=== PATIENT | female | born 1990 | race Caucasian/White ===

== ENCOUNTER 2016-06-06 07:58 | Day surgery (SDC) | payer BC, OTHER ==
[2016-06-06 08:28] VITALS: BP 107/67; PULSE 90; RESP 17; TEMP 97.1
== END 2016-06-06 09:10 | disposition home or self-care (01) ==
LOC: FBPOP 07:58
PROVIDERS: ATTEND Obstetrics & Gynecology
DX: O47.03 False labor before 37 completed weeks of gestation, third trimester (principal)
CPT/HCPCS: 59025; 99213

== ENCOUNTER 2016-06-15 05:55 | Inpatient (IN) | payer BC, OTHER ==
[2016-06-15] MEDS ORDERED: METHYLERGONOVINE 0.2 MG/ML 1 ML AMP IM PRN (06:02)
[2016-06-15] MEDS ORDERED: OXYTOCIN 10 UNIT/ML 1 ML VIAL IM PRN (06:02)
[2016-06-15] MEDS ORDERED: OXYTOCIN 30 UNITS/500 ML NS 30 UNIT in SALINE 1 500ML.BAG IV SCH ×2 (06:02→14:00)
[2016-06-15] MEDS ORDERED: LIDOCAINE 1% (PF) 10 MG/ML (30 ML SDV) SQ PRN (06:02)
[2016-06-15] MEDS ORDERED: CARBOPROST TROMETHAMINE 250 MCG/ML 1 ML AMP IM PRN (06:02)
[2016-06-15] MEDS ORDERED: TERBUTALINE 1 MG/ML VIAL SQ PRN (06:02)
[2016-06-15 06:19] VITALS: BMI 30.2
[2016-06-15] MEDS: LACTATED RINGERS 1,000 ML IV SCH ×3 (06:20→12:48)
[2016-06-15 06:29] LABS: Basophils % (A) 0 %; CH 24.7; CHCM 32.4; Eosinophils # (A) 0.1 k/uL (0-0.7); Eosinophils % (A) 1 %; HCT 34.2 % (34.0-46.0); HGB 10.8 gm/dL (11.4-16.0); Hypochromasia Slight; Luc # (Auto) 0.15; Luc % (Auto) 1; Lymphocytes # (A) 1.8 k/uL (1.0-4.8); Lymphocytes % (A) 17 %; MCH 24.3 pg (25.0-35.0); MCHC 31.6 g/dL (31.0-37.0); MCV 76.8 fL (80.0-100.0); Microcytosis Slight; Monocytes # (A) 0.9 k/uL (0-1.0); Monocytes % (A) 8 %; Neutrophils % (A) 73 %; RBC 4.46 m/uL (3.80-5.40); WBC 10.9 k/uL (3.8-10.6); WBC (Perox) 11.28
--- NOTE | 2016-06-15 07:11 | P.HPOB ---
History of Present Illness H&P Date: 06/15/16 Chief Complaint: Induction of labor 26-year-old presents for induction of labor. Her cervix is 2 cm dilated, 70% effaced, and -2 station. She is riccardo irregularly. heart tones 130-135 with moderate variability and reactive. Review of Systems All systems: negative Constitutional: Denies chills, Denies fever Eyes: denies blurred vision, denies pain Ears, nose, mouth and throat: Denies headache, Denies sore throat Cardiovascular: Denies chest pain, Denies shortness of breath Respiratory: Denies cough Gastrointestinal: Denies abdominal pain, Denies diarrhea, Denies nausea, Denies vomiting Genitourinary: Denies dysuria, Denies hematuria Musculoskeletal: Denies myalgias Integumentary: Denies pruritus, Denies rash Neurological: Denies numbness, Denies weakness Psychiatric: Denies anxiety, Denies depression Endocrine: Denies fatigue, Denies weight change Past Medical History Past Medical History: No Reported History Additional Past Medical History / Comment(s): Obstetric history: She had 2 previous vaginal deliveries, and then Amoxil termination. This is her fourth . She started care with pa at 14 weeks gestation. Her blood type is A+, antibodies are positive but too weak to titer, HIV nonreactive, hepatitis B negative, rubella immune, RPR nonreactive. Normal 1 hour glucose tolerance test. GBS negative. History of Any Multi-Drug Resistant Organisms: None Reported Past Surgical History: No Surgical Hx Reported Past Psychological History: No Psychological Hx Reported Smoking Status: Never smoker Past Alcohol Use History: Occasional Past Drug Use History: None Reported - Past Family History Father Family Medical History: No Reported History Medications and Allergies Home Medications Medication Instructions Recorded Confirmed Type No Known Home Medications [No 06/15/16 06/15/16 History Known Home Medications] Allergies Allergy/AdvReac Type Severity Reaction Status Date / Time No Known Allergies Allergy Verified 06/15/16 06:02 Exam Osteopathic Statement: *. No significant issues noted on an osteopathic structural exam other than those noted in the History and Physical/Consult. - Vital Signs Vital signs: Vital Signs Temp Pulse Resp BP 06/15/16 06:12 97.0 F L 91 16 116/74 Intake and Output 06/14/16 06/15/16 06/15/16 22:59 06:59 14:59 Other: # Voids 1 Weight 72.575 kg Heart: Regular rate and rhythm Lungs: Clear to auscultation bilaterally Abdomen: Soft, nontender Extremities: Negative Homans sign Results Result Diagrams: 06/15/16 06:15 Abnormal Lab Results - Last 24 Hours (Table) 06/15/16 Range/Units 06:15 WBC 10.9 H (3.8-10.6) k/uL Hgb 10.8 L (11.4-16.0) gm/dL MCV 76.8 L (80.0-100.0) fL MCH 24.3 L (25.0-35.0) pg Neutrophils # 8.0 H (1.3-7.7) k/uL Assessment and Plan (1) Normal labor Status: Acute Plan: 1. Admit to family place 2. Induction of labor with Pitocin and amniotomy. 3. Anticipate normal vaginal delivery
[2016-06-15] MEDS ORDERED: BUPIVACAINE (PF) 0.25% 30 ML VIAL ONE (08:25)
[2016-06-15] MEDS ORDERED: fentaNYL (PF) 50 MCG/ML 5 ML AMP ONE (08:25)
[2016-06-15] MEDS ORDERED: SODIUM CHLORIDE 0.9% 100 ML BAG ONE (08:25)
[2016-06-15] MEDS ORDERED: BUPIVACAINE (PF) 0.25% 25 ML, fentaNYL (PF) 200 MCG in SODIUM CHLORIDE 0.9% 71 ML EPIDURAL ONE (09:07)
[2016-06-15] MEDS ORDERED: ZOLPIDEM 5 MG TAB PO PRN (13:58)
[2016-06-15] MEDS ORDERED: HYDROCORTISONE 2.5% RECTAL CREAM 30 GM TUBE RECTAL PRN (13:58)
[2016-06-15] MEDS ORDERED: SIMETHICONE 80 MG CHEWABLE PO PRN (13:58)
[2016-06-15] MEDS ORDERED: BENZOCAINE/MENTHOL SPRAY 1 GM/SPRAY AEROSOL TOPICAL PRN (13:58)
[2016-06-15] MEDS ORDERED: diphenhydrAMINE 50 MG CAP PO PRN (13:58)
[2016-06-15] MEDS ORDERED: diphenhydrAMINE 50 MG/ML 1 ML VIAL IVP PRN ×2 (13:58)
[2016-06-15] MEDS ORDERED: diphenhydrAMINE 25 MG CAP PO PRN (13:58)
[2016-06-15] MEDS ORDERED: WITCH HAZEL 1 EACH MED..PAD TOPICAL PRN (13:58)
[2016-06-15] MEDS ORDERED: Acetaminophen-Codeine 300-30mg TAB PO PRN ×2 (13:58)
[2016-06-15] MEDS ORDERED: LANOLIN CREAM 5 GM TUBE TOPICAL PRN (13:58)
[2016-06-15] MEDS: IBUPROFEN 600 MG TAB PO PRN ×2 (14:22→23:11)
[2016-06-15] MEDS: ACETAMINOPHEN TAB 325 MG TAB PO PRN (19:37)
[2016-06-15] MEDS: SENNOSIDES-DOCUSATE SODIUM 1 EACH TAB PO SCH (20:20)
[2016-06-16] MEDS: SENNOSIDES-DOCUSATE SODIUM 1 EACH TAB PO SCH ×2 (02:26→09:56)
[2016-06-16] MEDS: ACETAMINOPHEN TAB 325 MG TAB PO PRN (02:26)
[2016-06-16] MEDS: IBUPROFEN 600 MG TAB PO PRN ×2 (08:03→14:18)
--- NOTE | 2016-06-16 08:13 | P.PROBDLV ---
Vaginal Delivery Note - . Vaginal Delivery Note: 26-year-old presents at 39 weeks and 2 days for induction of labor. Her cervix was 2 cm dilated, 70% effaced, -2 station. She is riccardo irregularly. heart tones 130-135 with moderate variability and reactive. Amniotomy was performed at 6:56 AM clear fluid noted. Pitocin was also started. When she was 4 cm she did get an epidural and was comfortable. Her cervix was completely dilated at 1329. She pushed, and delivered a viable male over midline episiotomy under epidural anesthesia at 1335. Head delivered OA, anterior shoulder delivered gentle downward traction followed by posterior shoulder and rest of body. Nose and mouth bulb suctioned, cord clamped and cut, infant placed on mother's abdomen. Apgars 8, 9, weight 7 lbs. 2 oz. Placenta delivered spontaneously, intact with three-vessel cord at 1337. Vagina, cervix, and perineum were inspected. Second-degree midline episiotomy was repaired with 3-0 Vicryl. There was a possible cystic lesion on the right labia as well which was anesthetized and then a small incision was made with a #10 blade. No fluid came out but there was some tissue recovered. This was possiblely a lipoma but was sent to pathology for analysis. Estimated blood loss 150 mL, mother and baby in stable condition.
--- NOTE | 2016-06-16 08:17 | P.DS ---
Providers Date of admission: 06/15/16 05:55 Expected date of discharge: 06/16/16 Attending physician: Alexsandra Jha Primary care physician: Stated None - Discharge Diagnosis(es) (1) Normal labor Current Visit: Yes Status: Resolved (2) Normal vaginal delivery Current Visit: Yes Status: Acute Hospital Course: Patient presented for induction of labor at 39 weeks and 2 days. She underwent a normal vaginal delivery. Her course was uncomplicated. She'll be discharged home on day #1 in stable condition to follow-up with me in 6 weeks. She denies nausea, vomiting, chest pain, sugars of breath or calf pain. She is ambulating voiding without difficulty and her lochia is decreasing. Plan - Discharge Summary New Discharge Prescriptions: Acetaminophen-Codeine 300-30mg [Tylenol w/codeine #3] 2 each PO Q4HR PRN #30 tab PRN Reason: Moderate To Severe Pain Ibuprofen [Motrin] 600 mg PO Q6HR PRN #30 tab PRN Reason: Mild Pain Or Fever >= 100.5 Discharge Medication List Acetaminophen-Codeine 300-30mg [Tylenol w/codeine #3] 2 each PO Q4HR PRN #30 tab 06/16/16 [Rx] Ibuprofen [Motrin] 600 mg PO Q6HR PRN #30 tab 06/16/16 [Rx] Follow up Appointment(s)/Referral(s): Alexsandra Jha DO [Doctor of Osteopathic Medicine] - 6 Weeks Discharge Disposition: HOME SELF-CARE
[2016-06-16 08:25] LABS: Basophils % (A) 0 %; CH 24.2; CHCM 31.2; Eosinophils # (A) 0.1 k/uL (0-0.7); Eosinophils % (A) 1 %; HDW 3.28; HGB 9.4 gm/dL (11.4-16.0); Hypochromasia Moderate; Luc # (Auto) 0.18; Luc % (Auto) 2; Lymphocytes # (A) 1.8 k/uL (1.0-4.8); Lymphocytes % (A) 15 %; MCH 24.3 pg (25.0-35.0); MCHC 31.2 g/dL (31.0-37.0); MCV 77.9 fL (80.0-100.0); Mean Platelet Volume 7.6; Monocytes # (A) 0.4 k/uL (0-1.0); Monocytes % (A) 3 %; Neutrophils # (A) 9.5 k/uL (1.3-7.7); Neutrophils % (A) 79 %; RBC 3.86 m/uL (3.80-5.40); RDW 14.8 % (11.5-15.5); WBC 12.1 k/uL (3.8-10.6); WBC (Perox) 12.31
[2016-06-16 09:44] VITALS: BP 118/74; PULSE 74; RESP 20; TEMP 97.6
== END 2016-06-16 15:00 | disposition home or self-care (01) | DRG 775 ==
LOC: 4FBP 05:55
PROVIDERS: ADMIT Obstetrics & Gynecology; ATTEND Obstetrics & Gynecology
PROC: 10E0XZZ Delivery of Products of Conception, External Approach (ICD-10-PCS; principal; 2016-06-15)
PROC: 10907ZC Drainage of Amniotic Fluid, Therapeutic from Products of Conception, Via Natural or Artificial Opening (ICD-10-PCS; 2016-06-15)
PROC: 3E033VJ Introduction of Other Hormone into Peripheral Vein, Percutaneous Approach (ICD-10-PCS; 2016-06-15)
PROC: 0W8NXZZ Division of Female Perineum, External Approach (ICD-10-PCS; 2016-06-15)
PROC: 0HBAXZX Excision of Inguinal Skin, External Approach, Diagnostic (ICD-10-PCS; 2016-06-15)
DX: O99.72 Diseases of the skin and subcutaneous tissue complicating childbirth (principal); D17.79 Benign lipomatous neoplasm of other sites; Z37.0 Single live birth; Z3A.39 39 weeks gestation of pregnancy
CPT/HCPCS: 85025; 88304; 88307

== ENCOUNTER 2019-07-24 20:34 | Emergency (ER) | payer BC, OTHER ==
[2019-07-24] MEDS ORDERED: SODIUM CHLORIDE 0.9% 1,000 ML IV STA (21:02)
[2019-07-24] MEDS ORDERED: ONDANSETRON 4 MG/2 ML VIAL IVP STA (21:02)
[2019-07-24] MEDS ORDERED: MORPHINE SULFATE 4 MG/ML SYRINGE IV STA (21:02)
[2019-07-24 21:15] LABS: Appearance,Urine Clear (Clear); Bilirubin,Urine Negative (Negative); Blood,Urine Negative (Negative); Color,Urine Yellow; Glucose,Urine (UA) Negative (Negative); HCT 30.1 % (34.0-46.0); HGB 8.9 gm/dL (11.4-16.0); Hypochromasia Marked; Ketones,Urine Negative (Negative); Leukocyte Esterase,Urine Negative (Negative); MCH 19.2 pg (25.0-35.0); MCHC 29.6 g/dL (31.0-37.0); MCV 64.7 fL (80.0-100.0); Mean Platelet Volume 7.5; Microcytosis Marked; Nitrite,Urine Negative (Negative); Platelet Count 310 k/uL (150-450); Poikilocytosis Slight; Protein,Urine Trace (Negative); RBC 4.66 m/uL (3.80-5.40); RDW 15.9 % (11.5-15.5); Specific Gravity,Urine 1.025 (1.001-1.035); Urobilinogen,Urine <2.0 mg/dL (<2.0)
[2019-07-24 21:24] LABS: ALT 8 U/L (4-34); AST 19 U/L (14-36); African American GFR (CKD) >90 (>60 ml/min/1.73 sqM); Albumin 4.2 g/dL (3.5-5.0); Alkaline Phosphatase 78 U/L (38-126); Anion Gap 9 mmol/L; Blood Urea Nitrogen 11 mg/dL (7-17); Calcium 9.4 mg/dL (8.4-10.2); Carbon Dioxide 24 mmol/L (22-30); Chloride 105 mmol/L (98-107); Glucose 93 mg/dL (74-99); Non-African American GFR(CKD) >90 (>60 ml/min/1.73 sqM); Potassium 3.5 mmol/L (3.5-5.1); Sodium 138 mmol/L (137-145); Total Bilirubin <0.1 mg/dL (0.2-1.3); Total Protein 7.3 g/dL (6.3-8.2)
[2019-07-24 21:47] VITALS: RESP 16
--- NOTE | 2019-07-24 21:53 | XR ---
EXAMINATION TYPE: XR KUB DATE OF EXAM: 07/24/2019 COMPARISON: NONE HISTORY: Abdominal pain TECHNIQUE: 2 views upright FINDINGS: Bowel gas pattern is normal. There is no sign of intestinal obstruction or pneumoperitoneum . Fecal pattern is normal. There is phleboliths in the pelvis on the right side. There are no calcifi cations over the kidneys. IMPRESSION: Nonacute abdomen.
[2019-07-24 21:55] LABS: Basophils # (M) 0.05 k/uL (0-0.2); Eosinophils # (M) 0.05 k/uL (0-0.7); Neutrophils % (M) 58 %; Nucleated Red Blood Cells 0 /100 WBC (0-0); Poikilocytosis (M) Present; Polychromasia Present; Total Cells Counted 100
--- NOTE | 2019-07-24 23:00 | US ---
EXAMINATION TYPE: US renals and bladder DATE OF EXAM: 07/24/2019 COMPARISON: NONE CLINICAL HISTORY: pain hx kidney stones . Pain x 3 hours. Hx kidney stones. EXAM MEASUREMENTS: Right Kidney: 11.4 x 5.5 x 4.9 cm Left Kidney: 10.8 x 5.0 x 5.6 cm Right Kidney: Anechoic dilated renal pelvis seen, appearance of hydronephrosis. Left Kidney: No hydronephrosis or masses seen Bladder: Appears anechoic. Bladder wall measures thickened at 0.48 cm. Bilateral Jets seen: Yes IMPRESSION: There is moderate right-sided hydronephrosis. There is however bilateral ureteral jets and I do not s uspect a high-grade obstruction. There is no significant renal atrophy.
--- NOTE | 2019-07-24 23:02 | US ---
EXAMINATION TYPE: US abdomen APPY DATE OF EXAM: 07/24/2019 COMPARISON: NONE CLINICAL HISTORY: RLQ pain . RLQ pain x 3 hours. Tubular structure with no peristalsis is seen in the RLQ anterior to iliac vessels. This structure measures 11 mm (AP Appendix Diameter: normal < 6mm) Measured outer wall to outer wall. Is the appendix seen in its entirety from the proximal cecum to distal end?: Tubular structure is se en in the RLQ that appears to connect to intestine. Is the appendix compressible: Area measured appears to compress only minimally. IMPRESSION: Tubular structure seen consistent with the appendix. The diameter is 10 mm which is abno rmal. Appendicitis is possible. No free fluid.
--- NOTE | 2019-07-24 23:43 | CT ---
EXAMINATION TYPE: CT abdomen pelvis w con DATE OF EXAM: 07/24/2019 COMPARISON: None HISTORY: RLQ pain CT DLP: 649.7 mGycm Automated exposure control for dose reduction was used. CONTRAST: Performed with IV Contrast, patient injected with 100 mL of Isovue 300. Multiple axial sections were obtained from the diaphragm to the floor the pelvis with intravenous con trast. Lung bases are clear. There is no pleural effusion. Heart appears normal. Liver spleen pancreas gallbladder appear normal. Bile ducts are not dilated. Stomach appears normal. There is no adrenal mass. Kidneys have normal size. There is right-sided hydronephrosis and hydrouret er. There is probably a 1 cm calculus in the distal right ureter close to the urinary bladder. 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 There is periureteral edema. The delayed images however show fairly normal symmetric renal excretion. There is no retroperitoneal adenopathy. Bladder distends smoothly. Uterus is anteverted. There is no free fluid in the pelvis. Th ere is no inguinal hernia. Appendix is posterior and partly filled with air and appears normal. There is no mesenteric edema. There is no ascites or free air. Lumbar vertebra have normal spacing and alignment. Posterior elements are intact. There is no fernanda caryl fracture. Bony pelvis is intact. I see no bony destructive process. IMPRESSION: Right-sided hydronephrosis and periureteral edema. Right-sided hydroureter. There is probably a large calculus distal right ureter. No significant obstruction seen since there is normal excretion seen o n the delayed images.
[2019-07-24] MEDS ORDERED: TAMSULOSIN 0.4 MG CAP.ER.24H PO STA (23:49)
[2019-07-24] MEDS ORDERED: SODIUM CHLORIDE 0.9% 500 ML 500 ML IV ONE (23:49)
--- NOTE | 2019-07-24 23:50 | ED ---
General Adult HPI - General Chief complaint: Abdominal Pain Stated complaint: abd pain Time Seen by Provider: 07/24/19 20:42 Source: patient, RN notes reviewed, old records reviewed Mode of arrival: ambulatory Limitations: no limitations - History of Present Illness Initial comments: 29-year-old female patient presents to ED for chief complaint of right lower quadrant/right posterior axillary line abdominal pain for the last 3 hours. Patient forces does feel similar to kidney stone she had approximately 3 weeks ago. Denies any chance of being . Reports nausea without emesis. Denies other complaints. Systemic: Pt denies fatigue, fever/chills, rash. Pt denies weakness, night sweats, weight loss. Neuro: Pt denies headache, visual disturbances, syncope or pre-syncope. HEENT: Pt denies ocular discharge or irritation, otalgia, rhinorrhea, pharyngitis or notable lymphadenopathy. Cardiopulmonary: Pt denies chest pain, SOB, heart palpitations, dyspnea on exertion. Abdominal/GI: Pt denies n/v/d. : Pt denies dysuria, burning w/ urination, frequency/urgency. Denies new onset urinary or bowel incontinence. MSK: Pt denies myalgia, loss of strength or function in extremities. Neuro: Pt denies new onset weakness, paresthesias. - Related Data Previous Rx's Medication Instructions Recorded Acetaminophen-Codeine 300-30mg 2 each PO Q4HR PRN #30 tab 06/16/16 [Tylenol w/codeine #3] Ibuprofen [Motrin] 600 mg PO Q6HR PRN #30 tab 06/16/16 Tamsulosin [Flomax] 0.4 mg PO DAILY #10 cap 07/24/19 Allergies Allergy/AdvReac Type Severity Reaction Status Date / Time No Known Allergies Allergy Verified 07/24/19 20:41 Review of Systems ROS Statement: Those systems with pertinent positive or pertinent negative responses have been documented in the HPI. ROS Other: All systems not noted in ROS Statement are negative. Past Medical History Past Medical History: No Reported History Additional Past Medical History / Comment(s): Obstetric history: She had 2 previous vaginal deliveries, and then Amoxil termination. This is her fourth . She started care with al at 14 weeks gestation. Her blood type is A+, antibodies are positive but too weak to titer, HIV nonreactive, hepatitis B negative, rubella immune, RPR nonreactive. Normal 1 hour glucose tolerance test. GBS negative. History of Any Multi-Drug Resistant Organisms: None Reported Past Surgical History: No Surgical Hx Reported Past Psychological History: No Psychological Hx Reported Smoking Status: Never smoker Past Alcohol Use History: Occasional Past Drug Use History: None Reported - Past Family History Father Family Medical History: No Reported History General Exam - General Exam Comments Initial Comments: Constitutional: NAD, AOX3, Pt has pleasant affect. HEENT: NC/AT, trachea midline, neck supple, no lymphadenopathy. Posterior pharynx non erythematous, without exudates. External ears appear normal, without discharge. Mucous membranes moist. Eyes PERRLA, EOM intact. There is no scleral icterus. No pallor noted. Cardiopulmonary: RRR, no murmurs, rubs or gallops, no JVD noted. Lungs CTAB in anterior and posterior jimenes. No peripheral edema. Abdominal exam: Abdomen soft and non-distended. Abdomen tender to palpation ri ght lower quadrant region.. Bowel sounds active in LLQ. No hepatosplenomegaly. No ecchymosis Neuro: CN II-XII grossly intact. No nuchal rigidity. No raccon eyes, no berumen sign, no hemotympanum. No cervical spinal tenderness. MSK: No posterior calf tenderness bilaterally, homans sign negative bilaterally. Posterior tibialis and radial pulse +2 bilaterally. Sensation intact in upper and lower extremities. Full active ROM in upper and lower extremities, 5/5 stregnth. Limitations: no limitations Course Vital Signs 07/24/19 07/24/19 20:39 21:46 Temperature 98.1 F Pulse Rate 70 Respiratory 20 16 Rate Blood Pressure 145/90 O2 Sat by Pulse 99 Oximetry Medical Decision Making - Medical Decision Making 29-year-old female patient presents to ED for chief complaint of right lower quadrant/right posterior axillary line abdominal pain for the last 3 hours. Patient forces does feel similar to kidney stone she had approximately 3 weeks ago. Denies any chance of being . Reports nausea without emesis. Denies other complaints. Patient does have a stable, afebrile. Physical exam displayed mild tender to palpation right lower quadrant right posterior axillary line region. Laboratory investigations were obtained, this was significant for mild anemia of 8.9. Ultrasounds were obtained, renal ultrasound displayed moderate right-sided hydronephrosis, bilateral renal jets. Right lower quadrant ultrasound displayed to the structure consistent with appendix. Diameter 10 mm which is abnormal. Appendicitis is possible minimally compressible no free fluid. CT abdomen and pelvis with contrast displayed right-sided hydronephrosis with periureteral edema. Right-sided hydroureter. 1 cm calculus in the distal right ureter close to the urinary bladder. No significant obstruction. Patient shade on Flomax, will be discharged with outpatient urology follow-up and close return precautions. Case discussed with Sim. - Lab Data Result diagrams: 07/24/19 20:55 07/24/19 20:55 Lab Results 07/24/19 07/24/19 07/24/19 Range/Units 20:55 20:55 20:55 WBC 5.0 (3.8-10.6) k/uL RBC 4.66 (3.80-5.40) m/uL Hgb 8.9 L (11.4-16.0) gm/dL Hct 30.1 L (34.0-46.0) % MCV 64.7 L (80.0-100.0) fL MCH 19.2 L (25.0-35.0) pg MCHC 29.6 L (31.0-37.0) g/dL RDW 15.9 H (11.5-15.5) % Plt Count 310 (150-450) k/uL Neutrophils % (Manual) 58 % Lymphocytes % (Manual) 34 % Monocytes % (Manual) 6 % Eosinophils % (Manual) 1 % Basophils % (Manual) 1 % Neutrophils # (Manual) 2.90 (1.3-7.7) k/uL Lymphocytes # (Manual) 1.70 (1.0-4.8) k/uL Monocytes # (Manual) 0.30 (0-1.0) k/uL Eosinophils # (Manual) 0.05 (0-0.7) k/uL Basophils # (Manual) 0.05 (0-0.2) k/uL Nucleated RBCs 0 (0-0) /100 WBC Manual Slide Review Performed Polychromasia Present Hypochromasia Marked Poikilocytosis Slight Poikilocytosis (manual Present Microcytosis Marked Sodium 138 (137-145) mmol/L Potassium 3.5 (3.5-5.1) mmol/L Chloride 105 (98-107) mmol/L Carbon Dioxide 24 (22-30) mmol/L Anion Gap 9 mmol/L BUN 11 (7-17) mg/dL Creatinine 0.84 (0.52-1.04) mg/dL Est GFR (CKD-EPI)AfAm >90 (>60 ml/min/1.73 sqM) Est GFR (CKD-EPI)NonAf >90 (>60 ml/min/1.73 sqM) Glucose 93 (74-99) mg/dL Plasma Lactic Acid Travon 1.3 (0.7-2.0) mmol/L Calcium 9.4 (8.4-10.2) mg/dL Total Bilirubin <0.1 L (0.2-1.3) mg/dL AST 19 (14-36) U/L ALT 8 (4-34) U/L Alkaline Phosphatase 78 (38-126) U/L Total Protein 7.3 (6.3-8.2) g/dL Albumin 4.2 (3.5-5.0) g/dL Lipase 122 (23-300) U/L Urine Color Urine Appearance (Clear) Urine pH (5.0-8.0) Ur Specific [place] (1.001-1.035) Urine Protein (Negative) Urine Glucose (UA) (Negative) Urine Ketones (Negative) Urine Blood (Negative) Urine Nitrite (Negative) Urine Bilirubin (Negative) Urine Urobilinogen (<2.0) mg/dL Ur Leukocyte Esterase (Negative) Urine HCG, Qual (Not Detectd) 07/24/19 07/24/19 Range/Units 20:55 20:55 WBC (3.8-10.6) k/uL RBC (3.80-5.40) m/uL Hgb (11.4-16.0) gm/dL Hct (34.0-46.0) % MCV (80.0-100.0) fL MCH (25.0-35.0) pg MCHC (31.0-37.0) g/dL RDW (11.5-15.5) % Plt Count (150-450) k/uL Neutrophils % (Manual) % Lymphocytes % (Manual) % Monocytes % (Manual) % Eosinophils % (Manual) % Basophils % (Manual) % Neutrophils # (Manual) (1.3-7.7) k/uL Lymphocytes # (Manual) (1.0-4.8) k/uL Monocytes # (Manual) (0-1.0) k/uL Eosinophils # (Manual) (0-0.7) k/uL Basophils # (Manual) (0-0.2) k/uL Nucleated RBCs (0-0) /100 WBC Manual Slide Review Polychromasia Hypochromasia Poikilocytosis Poikilocytosis (manual Microcytosis Sodium (137-145) mmol/L Potassium (3.5-5.1) mmol/L Chloride (98-107) mmol/L Carbon Dioxide (22-30) mmol/L Anion Gap mmol/L BUN (7-17) mg/dL Creatinine (0.52-1.04) mg/dL Est GFR (CKD-EPI)AfAm (>60 ml/min/1.73 sqM) Est GFR (CKD-EPI)NonAf (>60 ml/min/1.73 sqM) Glucose (74-99) mg/dL Plasma Lactic Acid [place] (0.7-2.0) mmol/L Calcium (8.4-10.2) mg/dL Total Bilirubin (0.2-1.3) mg/dL AST (14-36) U/L ALT (4-34) U/L Alkaline Phosphatase (38-126) U/L Total Protein (6.3-8.2) g/dL Albumin (3.5-5.0) g/dL Lipase (23-300) U/L Urine Color Yellow Urine Appearance Clear (Clear) Urine pH 6.0 (5.0-8.0) Ur Specific [place] 1.025 (1.001-1.035) Urine Protein Trace H (Negative) Urine Glucose (UA) Negative (Negative) Urine Ketones Negative (Negative) Urine Blood Negative (Negative) Urine Nitrite Negative (Negative) Urine Bilirubin Negative (Negative) Urine Urobilinogen <2.0 (<2.0) mg/dL Ur Leukocyte Esterase Negative (Negative) Urine HCG, Qual Not Detected (Not Detectd) Disposition Clinical Impression: Ureteral calculus, right Disposition: HOME SELF-CARE Condition: Stable Instructions (If sedation given, give patient instructions): Kidney Stones (ED) Additional Instructions: Follow-up with primary care provider and urologist tomorrow. Use medication as directed. Use Tylenol or Motrin for pain. Return to ER if condition worsens. Prescriptions: Tamsulosin [Flomax] 0.4 mg PO DAILY #10 cap Is patient prescribed a controlled substance at d/c from ED?: No Referrals: Sourav Soler MD [Primary Care Provider] - 1-2 days Salomon Stafford MD [STAFF PHYSICIAN] - 1-2 days
[2019-07-25] VITALS: BP 115/89; PULSE 69; TEMP 98
[2019-07-25] MEDS ORDERED: ACET/COD 300 MG/30 MG STARTER PACK 6 TAB BTL PO STA (00:02)
== END 2019-07-25 00:32 | disposition home or self-care (01) ==
LOC: EC 20:34
DX: N13.2 Hydronephrosis with renal and ureteral calculous obstruction (principal); D64.9 Anemia, unspecified; R93.89 Abnormal findings on diagnostic imaging of other specified body structures
CPT/HCPCS: 36415; 80053; 83605; 83690; 85025; 81003; 81025; 74018; 76705; 76770; 74177; 99285; 96374; 96375; 96361 ×2; J2270; J2405; Q9967

== ENCOUNTER 2019-08-07 | Inpatient (IN) | payer OTHER | END 2019-08-08 14:37 | disposition home or self-care (01) | DRG 661 | PROVIDERS: ADMIT Urology | PROC: 0T768DZ Dilation of Right Ureter with Intraluminal Device, Via Natural or Artificial Opening Endoscopic (ICD-10-PCS; principal; 2019-08-07) | PROC: 0TC68ZZ Extirpation of Matter from Right Ureter, Via Natural or Artificial Opening Endoscopic (ICD-10-PCS; principal; 2019-08-07) | CPT/HCPCS: 36415; 74018; 80053; 81001; 81025; 82365; 85025; 96374; 96375; 96376; 99285 ==

== ENCOUNTER 2019-08-12 | Emergency (ER) | payer OTHER | END 2019-08-12 17:42 | disposition home or self-care (01) | CPT/HCPCS: 99284; 96374; 96375 ×2; 96361; 36415; 80053; 82150; 83605; 83690; 85025; 81001; 87086; 74018; J2405; J0696; J1885 ==

== ENCOUNTER 2020-09-17 08:54 | Emergency (ER) | payer OTHER ==
[2020-09-17 09:00] VITALS: RESP 18
[2020-09-17] MEDS ORDERED: ONDANSETRON 4 MG/2 ML VIAL IVP STA (09:23)
[2020-09-17] MEDS ORDERED: SODIUM CHLORIDE 0.9% 1,000 ML IV ONE (09:23)
[2020-09-17 09:40] LABS: Basophils % (A) 1 %; Eosinophils % (A) 1 %; HCT 34.1 % (34.0-46.0); HGB 10.6 gm/dL (11.4-16.0); Hypochromasia Marked; Lymphocytes # (A) 0.9 k/uL (1.0-4.8); Lymphocytes % (A) 21 %; MCHC 31.2 g/dL (31.0-37.0); MCV 67.2 fL (80.0-100.0); Mean Platelet Volume 7.8; Microcytosis Marked; Monocytes # (A) 0.3 k/uL (0-1.0); Monocytes % (A) 7 %; Neutrophils # (A) 2.8 k/uL (1.3-7.7); Neutrophils % (A) 68 %; Platelet Count 224 k/uL (150-450); RBC 5.08 m/uL (3.80-5.40); RDW 15.9 % (11.5-15.5); WBC 4.2 k/uL (3.8-10.6)
--- NOTE | 2020-09-17 09:51 | ED ---
General Adult HPI - General Chief complaint: Urogenital Stated complaint: Poss Allergic Reaction Source: patient Mode of arrival: ambulatory Limitations: no limitations - History of Present Illness Initial comments: 30-year-old female past medical history of nephrolithiasis status post lithotripsy who presents emergency department for lower abdominal pain. Patient reports that her symptoms started 10 days ago. She does work in a doctor's office. States that she was placed on Bactrim for possible UTI. States the pain has moved from a suprapubic location and now is located in her bilateral flanks. Reports to dysuria and increased frequency of voiding. Denies any vaginal bleeding or discharge. Menstrual cycle was 2 weeks ago and was normal for her. She is a monogamous relationship. Denies concern for sexually transmitted infections. Patient is also on control. Denies diarrhea, constipation, melenic stools or hematochezia. No fevers or chills. She has been taking the Bactrim as directed however only has 1 day left and has not had any improvement in her symptoms. Thought that she was having a reaction to the Bactrim that she developed sore throat and dry mouth. Patient did not take her dose of Bactrim today. Patient had lithotripsy approximately one year ago. No other alleviating, precipitating or modifying factors - Related Data Home Medications Medication Instructions Recorded Confirmed Norelgestromin/Ethin.estradiol 1 patch TOPICAL MO 08/06/19 09/17/20 [Xulane 150-35 Mcg/Day Patch] Ibuprofen [Motrin Ib] 200 mg PO Q8H PRN 09/17/20 09/17/20 Previous Rx's Medication Instructions Recorded Cephalexin [Keflex] 500 mg PO Q6HR #28 cap 09/17/20 Allergies Allergy/AdvReac Type Severity Reaction Status Date / Time No Known Allergies Allergy Verified 09/17/20 10:23 Review of Systems ROS Statement: Those systems with pertinent positive or pertinent negative responses have been documented in the HPI. ROS Other: All systems not noted in ROS Statement are negative. Past Medical History Past Medical History: Hearing Disorder / Deafness, Renal Disease Additional Past Medical History / Comment(s): R nephrolithiasis diagnosed about 2 months ago, [place] bilaterally since . History of Any Multi-Drug Resistant Organisms: None Reported Past Surgical History: No Surgical Hx Reported Additional Past Surgical History / Comment(s): lithotripsy Past Anesthesia/Blood Transfusion Reactions: No Reported Reaction Additional Past Anesthesia/Blood Transfusion Reaction / Comment(s): Pt has never had surgery. Past Psychological History: Anxiety Smoking Status: Never smoker Past Alcohol Use History: Occasional Past Drug Use History: None Reported - Past Family History Father History Unknown: Yes Family Medical History: No Reported History Mother History Unknown: Yes Additional Family Medical History / Comment(s): Mother never goes to the doctor. General Exam Limitations: no limitations Course Vital Signs 09/17/20 09/17/20 08:56 11:41 Temperature 98.4 F 98.3 F Pulse Rate 98 71 Respiratory 18 18 Rate Blood Pressure 145/77 116/74 O2 Sat by Pulse 100 99 Oximetry Medical Decision Making - Medical Decision Making Upon arrival patient was placed into room 10. Thorough history and physical exam was performed. IV is established. Patient was given a liter bolus normal saline, and 4 mg of Zofran. Laboratory studies are conducted. Urinalysis demonstrates large leukocyte esterase, 44 red blood cells, greater than 182 white blood cells and moderate bacteria. Patient given dose of Rocephin. CT was performed due to worsening symptoms on antibiotics which demonstrates mild urinary bladder wall thickening. Patient will be switched to Keflex for possible pyelonephritis. Remainder of laboratory studies and vitals are stable. Patient was swabbed for Covid due to sinus symptoms which does come back and is positive. Results are discussed patient. Patient is discharge home at this time with instructions to follow-up with her primary care physician. Return to the emergency room for any new or worsening symptoms. Patient was discharged home in stable condition - Lab Data Result diagrams: 09/17/20 09:25 09/17/20 09:25 Lab Results 09/17/20 09/17/20 09/17/20 Range/Units 09:25 09:25 09:25 WBC 4.2 (3.8-10.6) k/uL RBC 5.08 (3.80-5.40) m/uL Hgb 10.6 L (11.4-16.0) gm/dL Hct 34.1 (34.0-46.0) % MCV 67.2 L (80.0-100.0) fL MCH 21.0 L (25.0-35.0) pg MCHC 31.2 (31.0-37.0) g/dL RDW 15.9 H (11.5-15.5) % Plt Count 224 (150-450) k/uL MPV 7.8 Neutrophils % 68 % Lymphocytes % 21 % Monocytes % 7 % Eosinophils % 1 % Basophils % 1 % Neutrophils # 2.8 (1.3-7.7) k/uL Lymphocytes # 0.9 L (1.0-4.8) k/uL Monocytes # 0.3 (0-1.0) k/uL Eosinophils # 0.0 (0-0.7) k/uL Basophils # 0.0 (0-0.2) k/uL Hypochromasia Marked Microcytosis Marked Sodium 133 L (137-145) mmol/L Potassium 3.8 (3.5-5.1) mmol/L Chloride 102 (98-107) mmol/L Carbon Dioxide 24 (22-30) mmol/L Anion Gap 7 mmol/L BUN 10 (7-17) mg/dL Creatinine 0.90 (0.52-1.04) mg/dL Est GFR (CKD-EPI)AfAm >90 (>60 ml/min/1.73 sqM) Est GFR (CKD-EPI)NonAf 87 (>60 ml/min/1.73 sqM) Glucose 127 H (74-99) mg/dL Plasma Lactic Acid [place] (0.7-2.0) mmol/L Calcium 8.8 (8.4-10.2) mg/dL Total Bilirubin 0.3 (0.2-1.3) mg/dL AST 21 (14-36) U/L ALT 8 (4-34) U/L Alkaline Phosphatase 81 (38-126) U/L Total Protein 7.0 (6.3-8.2) g/dL Albumin 4.0 (3.5-5.0) g/dL Lipase 69 (23-300) U/L Urine Color Urine Appearance (Clear) Urine pH (5.0-8.0) Ur Specific [place] (1.001-1.035) Urine Protein (Negative) Urine Glucose (UA) (Negative) Urine Ketones (Negative) Urine Blood (Negative) Urine Nitrite (Negative) Urine Bilirubin (Negative) Urine Urobilinogen (<2.0) mg/dL Ur Leukocyte Esterase (Negative) Urine RBC (0-5) /hpf Urine WBC (0-5) /hpf Ur Squamous Epith Cells (0-4) /hpf Urine Bacteria (None) /hpf Urine Mucus (None) /hpf Urine HCG, Qual Not Detected (Not Detectd) Coronavirus (PCR) (Not Detectd) 09/17/20 09/17/20 09/17/20 Range/Units 09:25 09:25 12:02 WBC (3.8-10.6) k/uL RBC (3.80-5.40) m/uL Hgb (11.4-16.0) gm/dL Hct (34.0-46.0) % MCV (80.0-100.0) fL MCH (25.0-35.0) pg MCHC (31.0-37.0) g/dL RDW (11.5-15.5) % Plt Count (150-450) k/uL MPV Neutrophils % % Lymphocytes % % Monocytes % % Eosinophils % % Basophils % % Neutrophils # (1.3-7.7) k/uL Lymphocytes # (1.0-4.8) k/uL Monocytes # (0-1.0) k/uL Eosinophils # (0-0.7) k/uL Basophils # (0-0.2) k/uL Hypochromasia Microcytosis Sodium (137-145) mmol/L Potassium (3.5-5.1) mmol/L Chloride (98-107) mmol/L Carbon Dioxide (22-30) mmol/L Anion Gap mmol/L BUN (7-17) mg/dL Creatinine (0.52-1.04) mg/dL Est GFR (CKD-EPI)AfAm (>60 ml/min/1.73 sqM) Est GFR (CKD-EPI)NonAf (>60 ml/min/1.73 sqM) Glucose (74-99) mg/dL Plasma Lactic Acid [place] 0.8 (0.7-2.0) mmol/L Calcium (8.4-10.2) mg/dL Total Bilirubin (0.2-1.3) mg/dL AST (14-36) U/L ALT (4-34) U/L Alkaline Phosphatase (38-126) U/L Total Protein (6.3-8.2) g/dL Albumin (3.5-5.0) g/dL Lipase (23-300) U/L Urine Color Yellow Urine Appearance Cloudy H (Clear) Urine pH 6.0 (5.0-8.0) Ur Specific [place] 1.024 (1.001-1.035) Urine Protein 2+ H (Negative) Urine Glucose (UA) Negative (Negative) Urine Ketones 1+ H (Negative) Urine Blood Small H (Negative) Urine Nitrite Negative (Negative) Urine Bilirubin Negative (Negative) Urine Urobilinogen <2.0 (<2.0) mg/dL Ur Leukocyte Esterase Large H (Negative) Urine RBC 44 H (0-5) /hpf Urine WBC >182 H (0-5) /hpf Ur Squamous Epith Cells 12 H (0-4) /hpf Urine Bacteria Moderate H (None) /hpf Urine Mucus Few H (None) /hpf Urine HCG, Qual (Not Detectd) Coronavirus (PCR) Detected A (Not Detectd) Disposition Clinical Impression: Pyelonephritis, Flank pain, Cystitis Disposition: HOME SELF-CARE Condition: Stable Instructions (If sedation given, give patient instructions): Urinary Tract Infection in Women (ED) Additional Instructions: Please follow up with your doctor in 2-4 days. Return to the ED for any new or worsening symptoms. Prescriptions: Cephalexin [Keflex] 500 mg PO Q6HR #28 cap Is patient prescribed a controlled substance at d/c from ED?: No Referrals: None,Stated [Primary Care Provider] - 1-2 days Time of Disposition: 11:58
[2020-09-17 09:54] LABS: ALT 8 U/L (4-34); AST 21 U/L (14-36); African American GFR (CKD) >90 (>60 ml/min/1.73 sqM); Alkaline Phosphatase 81 U/L (38-126); Anion Gap 7 mmol/L; Blood Urea Nitrogen 10 mg/dL (7-17); Calcium 8.8 mg/dL (8.4-10.2); Carbon Dioxide 24 mmol/L (22-30); Chloride 102 mmol/L (98-107); Glucose 127 mg/dL (74-99); Lipase 69 U/L (23-300); Non-African American GFR(CKD) 87 (>60 ml/min/1.73 sqM); Potassium 3.8 mmol/L (3.5-5.1); Sodium 133 mmol/L (137-145); Total Bilirubin 0.3 mg/dL (0.2-1.3)
[2020-09-17 09:55] LABS: Appearance,Urine Cloudy (Clear); Bacteria,Urine Moderate /hpf; Bilirubin,Urine Negative (Negative); Blood,Urine Small (Negative); Color,Urine Yellow; Glucose,Urine (UA) Negative (Negative); Ketones,Urine 1+ (Negative); Leukocyte Esterase,Urine Large (Negative); Mucus,Urine Few /hpf; Nitrite,Urine Negative (Negative); Protein,Urine 2+ (Negative); RBC,Urine 44 /hpf (0-5); Specific Gravity,Urine 1.024 (1.001-1.035); Squamous Epithelial Cell,Urine 12 /hpf (0-4); Urobilinogen,Urine <2.0 mg/dL (<2.0); WBC,Urine >182 /hpf (0-5)
--- NOTE | 2020-09-17 10:17 | CT ---
EXAMINATION TYPE: CT abdomen pelvis w con DATE OF EXAM: 09/17/2020 COMPARISON: 07/24/2019 HISTORY: Bilateral flank pain with a history of renal stones CT DLP: 690 mGycm CONTRAST: CT scan of the abdomen and pelvis is performed without Oral Contrast and with IV Contrast, patient in jected with 100 ml mL of Isovue 300. FINDINGS: LUNG BASES-: No visible nodule. No infiltrate. LIVER/GB: No calcified gallstones. No space occupying hepatic lesion. Biliary tree is of normal ca liber. PANCREAS: No inflammation. No distinct mass. SPLEEN: No splenic enlargement. No lesion seen. ADRENALS: No nodule. No thickening. KIDNEYS/BLADDER: No hydronephrosis. No nephrolithiasis. No distinct renal mass. Mild urinary bladd er wall thickening may reflect cystitis. BOWEL: Normal appendix. Normal bowel caliber. No inflammation. GENITAL ORGANS: No gross abnormality. LYMPH NODES: No greater than 1cm abdominal or pelvic lymph nodes are appreciated. AORTA: No significant abnormality. OSSEOUS STRUCTURES: No significant abnormality is seen. OTHER: No significant additional abnormality is seen. IMPRESSION: 1. Mild urinary bladder wall thickening may reflect cystitis.
[2020-09-17 11:42] VITALS: BP 116/74; PULSE 71; TEMP 98.3
[2020-09-17] MEDS ORDERED: cefTRIAXone IN SWFI 1,000 MG/10 ML SYRINGE IVP STA (11:55)
[2020-09-17] MEDS ORDERED: KETOROLAC 15 MG/ML 1 ML VIAL IVP SCH (12:00)
[2020-09-17] MEDS ORDERED: cefTRIAXone 1,000 MG VIAL (IM USE) IM STA (12:00)
== END 2020-09-17 12:09 | disposition home or self-care (01) ==
LOC: EC 08:54
DX: N12 Tubulo-interstitial nephritis, not specified as acute or chronic (principal); N30.90 Cystitis, unspecified without hematuria
CPT/HCPCS: 36415; 74177; 80053; 81001; 81025; 83605; 83690; 85025; 87086; 87635; 96361; 96372; 96374; 96375; 99284

== ENCOUNTER 2021-09-16 08:09 | Emergency (ER) | payer BC, OTHER ==
[2021-09-16 08:25] VITALS: RESP 18; TEMP 98
[2021-09-16] MEDS ORDERED: KETOROLAC 15 MG/ML 1 ML VIAL IM STA (08:52)
[2021-09-16 09:02] LABS: Appearance,Urine Turbid (Clear); Bacteria,Urine Rare /hpf; Bilirubin,Urine Negative (Negative); Blood,Urine Large (Negative); Color,Urine Yellow; Glucose,Urine (UA) Negative (Negative); Ketones,Urine Negative (Negative); Leukocyte Esterase,Urine Large (Negative); Nitrite,Urine Negative (Negative); Protein,Urine 2+ (Negative); RBC,Urine >182 /hpf (0-5); Squamous Epithelial Cell,Urine 5 /hpf (0-4); Urobilinogen,Urine <2.0 mg/dL (<2.0); WBC,Urine >182 /hpf (0-5)
[2021-09-16 09:03] LABS: Specific Gravity,Urine 1.019 (1.001-1.035)
--- NOTE | 2021-09-16 09:07 | ED ---
Female Urogenital HPI - General Chief complaint: Urogenital Stated complaint: Female Time Seen by Provider: 09/16/21 08:27 Source: patient, RN notes reviewed Mode of arrival: ambulatory Limitations: no limitations - History of Present Illness Initial comments: This is a 31-year-old female who presents to the emergency department with vaginal pain. States that this has been an ongoing problem for about a month, and she has been treated for a UTI with antibiotics twice. She was first treated with Macrobid and then Cipro. Unsure if symptoms resolved, or if she felt improvement due to the Pyridium numbing the urinary tract. States that the pain began in the lower abdomen/pelvic area before traveling down to the vagina. She complains of dysuria and hematuria. She has watery discharge, however no white or chunky vaginal discharge. She has had kidney stones in the past that required treatment with a lithotripsy. MD Complaint: dysuria, pelvic pain, other (vaginal pain) Onset/Timin -: month(s) Worsens with: urination Last Menstrual Period: 09/06/21 - Related Data Home Medications Medication Instructions Recorded Confirmed Norelgestromin/Ethin.estradiol 1 patch TOPICAL MO 08/06/19 09/16/21 [Xulane 150-35 Mcg/Day Patch] Lisdexamfetamine Dimesylate 40 mg PO DAILY 09/16/21 09/16/21 [Vyvanse] Previous Rx's Medication Instructions Recorded Cephalexin [Keflex] 1,000 mg PO Q12HR 7 Days #28 cap 09/16/21 Allergies Allergy/AdvReac Type Severity Reaction Status Date / Time sulfamethoxazole AdvReac Nausea & Verified 09/16/21 10:07 [From Bactrim] Vomiting trimethoprim [From Bactrim] AdvReac Nausea & Verified 09/16/21 10:07 Vomiting Review of Systems ROS Statement: Those systems with pertinent positive or pertinent negative responses have been documented in the HPI. ROS Other: All systems not noted in ROS Statement are negative. Constitutional: Denies: fever, chills ENT: Denies: ear pain, throat pain Respiratory: Denies: cough, dyspnea Cardiovascular: Denies: chest pain, palpitations Gastrointestinal: Denies: abdominal pain, nausea, vomiting, diarrhea Genitourinary: Reports: dysuria, hematuria. Denies: urgency Musculoskeletal: Denies: back pain Skin: Denies: rash Neurological: Denies: headache Past Medical History Past Medical History: Hearing Disorder / Deafness, Renal Disease Additional Past Medical History / Comment(s): R nephrolithiasis diagnosed about 2 months ago, [place] bilaterally since . kidney stone History of Any Multi-Drug Resistant Organisms: None Reported Past Surgical History: No Surgical Hx Reported Additional Past Surgical History / Comment(s): lithotripsy Past Anesthesia/Blood Transfusion Reactions: No Reported Reaction Additional Past Anesthesia/Blood Transfusion Reaction / Comment(s): Pt has never had surgery. Past Psychological History: Anxiety Smoking Status: Never smoker Past Alcohol Use History: Rare Past Drug Use History: None Reported - Past Family History Father History Unknown: Yes Family Medical History: No Reported History Mother History Unknown: Yes Additional Family Medical History / Comment(s): Mother never goes to the doctor. General Exam Limitations: no limitations General appearance: alert, in no apparent distress Head exam: Present: atraumatic, normocephalic, normal inspection Respiratory exam: Present: normal lung sounds bilaterally. Absent: respiratory distress, wheezes, rales, rhonchi, stridor Cardiovascular Exam: Present: regular rate, normal rhythm, normal heart sounds. Absent: systolic murmur, diastolic murmur, rubs, gallop, clicks Neurological exam: Present: alert, oriented X3, CN II-XII intact Psychiatric exam: Present: normal affect, normal mood Skin exam: Present: warm, dry, intact, normal color. Absent: rash Course Vital Signs 09/16/21 09/16/21 08:21 12:35 Temperature 98.0 F Pulse Rate 102 H 90 Respiratory 18 18 Rate Blood Pressure 140/98 136/89 O2 Sat by Pulse 98 98 Oximetry Medical Decision Making - Medical Decision Making This is a 31-year-old female who presents to the emergency department with vaginal pain, dysuria, and hematuria. Ultrasound of the kidneys, ureters, and bladder obtained. It was noted that the cystic focus at the upper pole of the left kidney on CT is not visualized with certainty on ultrasound. Computed tomography scan of the abdomen and pelvis obtained for further evaluation. This revealed a diffusely thickened urinary bladder wall with surrounding minimal fat stranding. These findings and the patient's symptoms consistent with cystitis. Discussed with the patient that the CT indicated a cystitis which maybe related to urinary tract infection. It did not identify any renal stones or other acute irregularities. The cysts in the kidneys are stable. Patient became tearful and frustrated, stating that she just wants to know what is causing her pain. I offered to do a pelvic exam, however she declined. We discussed the importance of her following up with urology given the recurrent cystitis. Upon reviewing a urine culture from one year ago, it did demonstrate that she was resistant to multiple antibiotics, likely due to multiple rounds of treatment. This was discussed with the patient. I initially planned to prescribe Macrobid, however she declined, saying she was recently treated with this. Prescription for Keflex provided, with the understanding that this may not sufficiently treat symptoms given her high resistance rate. I offered to prescribe Pyridium for pain, however she declined. Return precautions reviewed in depth, the patient is instructed to return to the emergency department with any new, worsening, or concerning symptoms. Patient verbalized understanding. This case was discussed in detail with the attending ED physician. Presentation, findings, and treatment plan discussed in detail as well. - Lab Data Result diagrams: 09/16/21 10:24 09/16/21 10:24 Lab Results 09/16/21 09/16/21 09/16/21 Range/Units 08:34 08:34 10:24 WBC 7.4 (3.8-10.6) k/uL RBC 5.41 H (3.80-5.40) m/uL Hgb 12.5 (11.4-16.0) gm/dL Hct 40.8 (34.0-46.0) % MCV 75.4 L (80.0-100.0) fL MCH 23.0 L (25.0-35.0) pg MCHC 30.5 L (31.0-37.0) g/dL RDW 15.2 (11.5-15.5) % Plt Count 325 (150-450) k/uL MPV 6.9 Neutrophils % 71 % Lymphocytes % 21 % Monocytes % 5 % Eosinophils % 1 % Basophils % 0 % Neutrophils # 5.2 (1.3-7.7) k/uL Lymphocytes # 1.6 (1.0-4.8) k/uL Monocytes # 0.4 (0-1.0) k/uL Eosinophils # 0.1 (0-0.7) k/uL Basophils # 0.0 (0-0.2) k/uL Hypochromasia Slight Microcytosis Slight Sodium (137-145) mmol/L Potassium (3.5-5.1) mmol/L Chloride (98-107) mmol/L Carbon Dioxide (22-30) mmol/L Anion Gap mmol/L BUN (7-17) mg/dL Creatinine (0.52-1.04) mg/dL Est GFR (CKD-EPI)AfAm (>60 ml/min/1.73 sqM) Est GFR (CKD-EPI)NonAf (>60 ml/min/1.73 sqM) Glucose (74-99) mg/dL Calcium (8.4-10.2) mg/dL Total Bilirubin (0.2-1.3) mg/dL AST (14-36) U/L ALT (4-34) U/L Alkaline Phosphatase (38-126) U/L Total Protein (6.3-8.2) g/dL Albumin (3.5-5.0) g/dL Urine Color Yellow Urine Appearance Turbid H (Clear) Urine pH 7.0 (5.0-8.0) Ur Specific [place] 1.019 (1.001-1.035) Urine Protein 2+ H (Negative) Urine Glucose (UA) Negative (Negative) Urine Ketones Negative (Negative) Urine Blood Large H (Negative) Urine Nitrite Negative (Negative) Urine Bilirubin Negative (Negative) Urine Urobilinogen <2.0 (<2.0) mg/dL Ur Leukocyte Esterase Large H (Negative) Urine RBC >182 H (0-5) /hpf Urine WBC >182 H (0-5) /hpf Ur Squamous Epith Cells 5 H (0-4) /hpf Urine Bacteria Rare H (None) /hpf Urine HCG, Qual Not Detected (Not Detectd) 09/16/21 Range/Units 10:24 WBC (3.8-10.6) k/uL RBC (3.80-5.40) m/uL Hgb (11.4-16.0) gm/dL Hct (34.0-46.0) % MCV (80.0-100.0) fL MCH (25.0-35.0) pg MCHC (31.0-37.0) g/dL RDW (11.5-15.5) % Plt Count (150-450) k/uL MPV Neutrophils % % Lymphocytes % % Monocytes % % Eosinophils % % Basophils % % Neutrophils # (1.3-7.7) k/uL Lymphocytes # (1.0-4.8) k/uL Monocytes # (0-1.0) k/uL Eosinophils # (0-0.7) k/uL Basophils # (0-0.2) k/uL Hypochromasia Microcytosis Sodium 136 L (137-145) mmol/L Potassium 3.8 (3.5-5.1) mmol/L Chloride 104 (98-107) mmol/L Carbon Dioxide 26 (22-30) mmol/L Anion Gap 6 mmol/L BUN 9 (7-17) mg/dL Creatinine 0.83 (0.52-1.04) mg/dL Est GFR (CKD-EPI)AfAm >90 (>60 ml/min/1.73 sqM) Est GFR (CKD-EPI)NonAf >90 (>60 ml/min/1.73 sqM) Glucose 89 (74-99) mg/dL Calcium 9.2 (8.4-10.2) mg/dL Total Bilirubin 0.7 (0.2-1.3) mg/dL AST 17 (14-36) U/L ALT 7 (4-34) U/L Alkaline Phosphatase 92 (38-126) U/L Total Protein 7.3 (6.3-8.2) g/dL Albumin 4.1 (3.5-5.0) g/dL Urine Color Urine Appearance (Clear) Urine pH (5.0-8.0) Ur Specific [place] (1.001-1.035) Urine Protein (Negative) Urine Glucose (UA) (Negative) Urine Ketones (Negative) Urine Blood (Negative) Urine Nitrite (Negative) Urine Bilirubin (Negative) Urine Urobilinogen (<2.0) mg/dL Ur Leukocyte Esterase (Negative) Urine RBC (0-5) /hpf Urine WBC (0-5) /hpf Ur Squamous Epith Cells (0-4) /hpf Urine Bacteria (None) /hpf Urine HCG, Qual (Not Detectd) - Radiology Data Radiology results: report reviewed, image reviewed Disposition Clinical Impression: Cystitis Disposition: HOME SELF-CARE Instructions (If sedation given, give patient instructions): Urinary Tract I nfection in Women (ED), Interstitial Cystitis (ED) Additional Instructions: Return to the emergency department with any new, worsening, or concerning symptoms. Take the antibiotic as prescribed for 7 days. Call urology and make an appointment for further evaluation. Prescriptions: Cephalexin [Keflex] 1,000 mg PO Q12HR 7 Days #28 cap Is patient prescribed a controlled substance at d/c from ED?: No Referrals: None,Stated [Primary Care Provider] - 1-2 days Simon Carcamo MD [STAFF PHYSICIAN] - 1-2 days
--- NOTE | 2021-09-16 09:56 | US ---
EXAMINATION TYPE: US kidneys/renal and bladder DATE OF EXAM: 09/16/2021 COMPARISON: CT 09/17/2020 CLINICAL HISTORY: dysuria, hematuria, abd/pelvic pain. Hematuria, UTI pain in vagina area EXAM MEASUREMENTS: Right Kidney: 9.8 x 3.6 x 4.1 cm Left Kidney: 9.7 x 3.6 x 3.6 cm Right Kidney: No hydronephrosis or masses seen Left Kidney: No hydronephrosis or masses seen Bladder: Anechoic not fully distended. Bilateral Jets seen: No There is no evidence for hydronephrosis at this point in time. No nephrolithiasis is seen. Cortical medullary differentiation is maintained. No masses are identified. The urinary bladder is anechoic, contracted. IMPRESSION: Cystic focus noted at the upper pole the left kidney on CT is not seen with certainty on ultrasound. Correlate for possible cystitis.
[2021-09-16 10:42] LABS: Basophils % (A) 0 %; Eosinophils # (A) 0.1 k/uL (0-0.7); Eosinophils % (A) 1 %; HCT 40.8 % (34.0-46.0); HGB 12.5 gm/dL (11.4-16.0); Hypochromasia Slight; Lymphocytes # (A) 1.6 k/uL (1.0-4.8); Lymphocytes % (A) 21 %; MCHC 30.5 g/dL (31.0-37.0); MCV 75.4 fL (80.0-100.0); Mean Platelet Volume 6.9; Microcytosis Slight; Monocytes # (A) 0.4 k/uL (0-1.0); Monocytes % (A) 5 %; Neutrophils # (A) 5.2 k/uL (1.3-7.7); Neutrophils % (A) 71 %; Platelet Count 325 k/uL (150-450); RBC 5.41 m/uL (3.80-5.40); RDW 15.2 % (11.5-15.5); WBC 7.4 k/uL (3.8-10.6)
[2021-09-16 10:55] LABS: ALT 7 U/L (4-34); AST 17 U/L (14-36); African American GFR (CKD) >90 (>60 ml/min/1.73 sqM); Albumin 4.1 g/dL (3.5-5.0); Alkaline Phosphatase 92 U/L (38-126); Anion Gap 6 mmol/L; Blood Urea Nitrogen 9 mg/dL (7-17); Calcium 9.2 mg/dL (8.4-10.2); Carbon Dioxide 26 mmol/L (22-30); Chloride 104 mmol/L (98-107); Glucose 89 mg/dL (74-99); Non-African American GFR(CKD) >90 (>60 ml/min/1.73 sqM); Potassium 3.8 mmol/L (3.5-5.1); Sodium 136 mmol/L (137-145); Total Bilirubin 0.7 mg/dL (0.2-1.3); Total Protein 7.3 g/dL (6.3-8.2)
--- NOTE | 2021-09-16 11:47 | CT ---
EXAMINATION TYPE: CT abdomen pelvis w con DATE OF EXAM: 09/16/2021 COMPARISON: CT dated 09/17/2020 HISTORY: pelvic pain CT DLP: 596 mGycm Automated exposure control for dose reduction was used. TECHNIQUE: Helical acquisition of images was performed from the lung bases through the pelvis. CONTRAST: Performed without Oral Contrast and with IV Contrast, patient injected with 100 mL of Isovue 300. FINDINGS: LUNG BASES: No significant abnormality is appreciated. LIVER/GB: Suspected hemangioma in segment 7 of the liver, appreciated previously. Unremarkable liver otherwise. No radiodense gallbladder calculi. PANCREAS: No significant abnormality is seen. SPLEEN: Tiny millimetric hypodensity/cyst at the anterior aspect of the spleen, otherwise unremarkabl e spleen. ADRENALS: No significant abnormality is seen. KIDNEYS: Cortical irregularity of the upper pole of right kidney, stable. Small cyst is seen at the u pper pole of the left kidney, also stable. 2 mm right lower pole nonobstructing renal calculus. Suspe cted bilateral extrarenal pelvis. Unremarkable kidneys otherwise. FREE AIR: No free air is visualized. RETROPERITONEAL ADENOPATHY: None visualized REPRODUCTIVE ORGANS: No gross uterine or adnexal mass. URINARY BLADDER: Diffusely thickened wall of the urinary bladder with surrounding minimal fat strand ing, cystitis cannot be excluded, please correlate clinically and with urinalysis results. PELVIC ADENOPATHY: None visualized. OSSEOUS STRUCTURES: No significant abnormality is seen. BOWEL: Unremarkable stomach, duodenum and small bowel. Fecal loading of the rectum and segments of t he colon. Normal appendix. OTHER: No sizable abdominal or pelvic ascites. IMPRESSION: Diffusely thickened urinary bladder wall with surrounding minimal fat stranding, cystitis cannot be e xcluded, please correlate clinically and with urinalysis results. Other incidental findings as descri bed above.
[2021-09-16 12:45] VITALS: BP 136/89; PULSE 90
[2021-09-17 11:34] LABS: Chlamydia trachomatis rRNA Not detected (Not detected); Neisseria gonorrhoeae rRNA Not detected (Not detected)
== END 2021-09-16 12:35 | disposition home or self-care (01) ==
LOC: EC 08:09
DX: N30.01 Acute cystitis with hematuria (principal); F41.9 Anxiety disorder, unspecified; Z88.1 Allergy status to other antibiotic agents; Z88.2 Allergy status to sulfonamides; Z87.442 Personal history of urinary calculi
CPT/HCPCS: 99284; 96372; 36415; 80053; 87491; 85025; 81001; 81025; 87086; 76770; 74177; J1885; Q9967

== ENCOUNTER → 2022-09-02 | Outpatient (CLI) | payer BC, OTHER ==
[2022-09-02 15:48] LABS: African American GFR (CKD) 101.3 (60.0-200.0); BUN/Creat Ratio 16.57 Ratio (12.00-20.00); Blood Urea Nitrogen 14.6 mg/dL (9.0-27.0); Calcium 9.6 mg/dL (8.7-10.3); Carbon Dioxide 25.9 mmol/L (20.0-27.5); Chloride 105 mmol/L (96-109); Glucose 84 mg/dL (70-110); Non-African American GFR(CKD) 87.4 (60.0-200.0); Potassium 4.2 mmol/L (3.5-5.5); Sodium 142 mmol/L (135-145)
== END | disposition home or self-care (01) ==
LOC: LABWHC1 10:30
PROVIDERS: ATTEND Nurse Practitioner
DX: I10 Essential (primary) hypertension (principal)
CPT/HCPCS: 36415; 80048; 82384; 83835; 84244; 84443

== ENCOUNTER → 2022-09-08 | Outpatient (CLI) | payer BC, OTHER ==
--- NOTE | 2022-09-08 08:51 | US ---
EXAMINATION TYPE: US renal artery duplex complete DATE OF EXAM: 09/08/2022 COMPARISON: NONE CLINICAL HISTORY: I10 I70.1. battling HTN for over 1 year, changing control and BP meds to help regulate. MEASUREMENTS: RENAL SIZE: Rt Kidney: 10.1 x 5.2 x 5.1cm Lt Kidney: 10.6 x 4.2 x 5.1cm RESISTANCE INDEX Right: 0.6 Left: 0.6 RA/AO RATIO (< 3.5 ) Right: 2.0 Left: 1.9 RA VELOCITY ( < 180 cm/s) Right: 144.8 Left: 141.2 Normal appearing renal artery study IMPRESSION: 1. Normal velocities and ratios. No suspicious changes to suggest stenosis.
== END | disposition home or self-care (01) ==
LOC: RADUSWWP 06:53
PROVIDERS: ATTEND Internal Medicine Interventional Cardiology
DX: I10 Essential (primary) hypertension (principal); I70.1 Atherosclerosis of renal artery
CPT/HCPCS: 93975

== ENCOUNTER 2023-01-04 09:52 | Day surgery (SDC) | payer BC, OTHER ==
[~2023-01-04 09:52] MED LIST: LACTATED RINGERS 1,000 ML IV SCH; LIDOCAINE 1% (10MG/ML) FOR IV START INTRADERMA PRN
[2023-01-04 11:01] VITALS: TEMP 97
[2023-01-04] MEDS ORDERED: LIDOCAINE 2% INJ 20 MG/ML (2 ML VIAL) ONE (12:16)
[2023-01-04] MEDS ORDERED: PROPOFOL 10 MG/ML 20 ML VIAL IV ONE (12:16)
--- NOTE | 2023-01-04 12:35 | P.PCN ---
Date of Procedure: 01/04/23 Procedure(s) Performed: Brief history: Patient is a pleasant 32-year-old white female scheduled for an upper endoscopy as well as colonoscopy as a part of evaluation of iron deficiency anemia and intermittent rectal bleeding Procedure performed: Esophagogastroduodenoscopy with biopsy Colonoscopy Preoperative diagnosis: Iron deficiency anemia Anesthesia: [facility] Procedure: After informed consent was obtained from the patient was brought into the endoscopy unit and IV sedation was administered by anesthesia under continuous monitoring. Initially upper endoscopy was done. The Olympus GF 160 video endoscope was inserted inserted into the mouth and esophagus intubated without any difficulty and was gradually advanced into the stomach and duodenum and carefully examined. The bulb and second part of the duodenum appeared biopsies were done from the duodenum to rule out celiac disease The scope was then withdrawn into the stomach adequately insufflated with air and upon careful examination the ant had minimal gastritis and biopsies were done from this area. Because of the d body, cardia and fundus appeared normal. The scope was then withdrawn into the esophagus. sliding-type well hernia noted The GE junction was located at 40 cm to the incisors. It appeared regular with no erythema erosions or ulcerations. Rest of the esophagus appeared normal. Patient tolerated the procedure well. At this time the patient continued to remain sedation. Initial digital rectal examination was normal. Olympus CF 160 video colonoscope was then inserted into the rectum and gradually advanced to the cecum without any difficulty. Careful examination was performed as the scope was gradually being withdrawn. The prep was excellent. The cecum, ascending colon, transverse colon, descending colon, sigmoid colon and rectum appeared normal. Retroflexion was performed in the rectum and no lesions were noted. Patient tolerated the procedure well. Impression: 1. Upper endoscopy revealed mild antral gastritis and a small hiatal hernia 2. Colonoscopy was within normal limits with no evidence of colorectal neoplasia Recommendations: Findings of this examination were discussed with the patient as well as her family. She was advised to follow with the biopsy results. Continue with iron supplements and monitor CBC periodically.]
[2023-01-04 13:09] VITALS: BP 137/90; PULSE 67; RESP 20
== END 2023-01-04 13:09 | disposition home or self-care (01) ==
LOC: ORWHC2ENDO 09:52
PROVIDERS: ATTEND Internal Medicine Gastroenterology
DX: K31.9 Disease of stomach and duodenum, unspecified (principal); K29.50 Unspecified chronic gastritis without bleeding; K62.5 Hemorrhage of anus and rectum; D64.9 Anemia, unspecified; K44.9 Diaphragmatic hernia without obstruction or gangrene; I10 Essential (primary) hypertension; Z79.899 Other long term (current) drug therapy
CPT/HCPCS: 81025; 88305; 45378; 43239; J2704; J2001

== ENCOUNTER 2023-06-19 17:28 | Emergency (ER) | payer OTHER ==
[2023-06-19 17:56] VITALS: TEMP 98.4
--- NOTE | 2023-06-19 21:30 | XR ---
Cervical spine HISTORY: Neck pain for 3 days. COMPARISON: None. TECHNIQUE: 6 views of the cervical spine were obtained. FINDINGS: Craniovertebral junction relationships and prevertebral soft tissues are normal. The cervical vertebral segments are normal in height and alignment there is no fracture or subluxatio n. The disc spaces well-maintained and there is no significant degenerative disc disease. Facet joints a nd uncovertebral joints are intact. Neuroforamina are widely patent. IMPRESSION: No significant abnormality seen.
[2023-06-19] MEDS ORDERED: KETOROLAC 15 MG/ML 1 ML VIAL IM STA (21:31)
--- NOTE | 2023-06-19 22:02 | ED ---
General Adult HPI - General Chief complaint: Neck Pain/Injury Stated complaint: Neck,Back,Jaw Pain Time Seen by Provider: 06/19/23 20:48 Source: patient Mode of arrival: ambulatory Limitations: no limitations - History of Present Illness Initial comments: 33-year-old female presenting to the ED with a chief complaint of neck pain. Patient states possibly 2 days ago started to experience without like a strain. However since onset, reports pain has worsened in severity. Reports worsening of pain with movement of the neck and shoulder. No headache with this. No weakness. No history of IV drug use. No fever or chills. No chest pain or shortness of breath. No other complaints. Does note a history of similar symptoms in the past however notes that they resolved on their own in the past. - Related Data Home Medications Medication Instructions Recorded Confirmed Lisdexamfetamine Dimesylate 60 mg PO DAILY 09/16/21 01/04/23 [Vyvanse] Metoprolol Succinate (ER) [Toprol 25 mg PO HS 01/03/23 01/04/23 Xl] Norethindrone [Ortho Micronor] 0.35 mg PO DAILY 01/03/23 01/04/23 Allergies Allergy/AdvReac Type Severity Reaction Status Date / Time amlodipine Allergy Swelling Verified 06/19/23 17:37 citalopram AdvReac Nausea Verified 06/19/23 17:37 sulfamethoxazole AdvReac Nausea & Verified 06/19/23 17:37 [From Bactrim] Vomiting trimethoprim [From Bactrim] AdvReac Nausea & Verified 06/19/23 17:37 Vomiting Review of Systems ROS Statement: Those systems with pertinent positive or pertinent negative responses have been documented in the HPI. ROS Other: All systems not noted in ROS Statement are negative. Past Medical History Past Medical History: GERD/Reflux, Hearing Disorder / Deafness, Hypertension, Renal Disease Additional Past Medical History / Comment(s): past hx. R nephrolithiasis, frequent UTI's, SELDOVIA bilaterally since . kidney stone, rectal bleeding, & anemia, ocular migraine headaches History of Any Multi-Drug Resistant Organisms: None Reported Past Surgical History: No Surgical Hx Reported Additional Past Surgical History / Comment(s): lithotripsy Past Anesthesia/Blood Transfusion Reactions: No Reported Reaction Additional Past Anesthesia/Blood Transfusion Reaction / Comment(s): Pt has never had surgery. Past Psychological History: ADD/ADHD, Anxiety Smoking Status: Never smoker Past Alcohol Use History: Occasional Past Drug Use History: Marijuana - Past Family History Father History Unknown: Yes Family Medical History: No Reported History Mother History Unknown: Yes Additional Family Medical History / Comment(s): Mother never goes to the doctor. General Exam Limitations: no limitations General appearance: alert, in no apparent distress Head exam: Present: atraumatic, normocephalic Neck exam: Present: other (Negative Kernig and Brudzinski sign. Midline and paraspinal tenderness to palpation.) Extremities exam: Present: other (Strength and sensation equal and intact in bilateral upper extremities.) Neurological exam: Present: alert, oriented X3, CN II-XII intact Skin exam: Present: warm, dry Course Vital Signs 06/19/23 17:35 Temperature 98.4 F Pulse Rate 92 Respiratory 18 Rate Blood Pressure 166/108 O2 Sat by Pulse 100 Oximetry Medical Decision Making - Medical Decision Making Was pt. sent in by a medical professional or institution (, PA, [employer]ER, urgent care, hospital, or senior living...) When possible be specific @ -No Did you speak to anyone other than the patient for history (EMS, parent, family, police, friend...)? What history was obtained from this source @ -No Did you review nursing and triage notes (agree or disagree)? Why? @ -I reviewed and agree with nursing and triage notes Were old charts reviewed (outside hosp., previous admission, EMS record, old EK G, old radiological studies, urgent care reports/EKG's, senior living records)? Report findings @ -No old charts were reviewed Differential Diagnosis (chest pain, altered mental status, abdominal pain women, abdominal pain men, vaginal bleeding, weakness, fever, dyspnea, syncope, headache, dizziness, GI bleed, back pain, seizure, CVA, palpatations, mental health, musculoskeletal)? @ -Differential Musculoskeletal Muscular strain, contusion, ligament sprain, fracture, arthritis, septic arthritis, bursitis, cellulitis, muscle spasm, nerve compression, DVT, arterial occlusion, herpes zoster, electrolyte abnormality, tumor.... This is not meant to be in all inclusive list EKG interpreted by me (3pts min.). @ -None X-rays interpreted by me (1pt min.). @ -X-Ray of the cervical spine interpreted by me showing no evidence of acute finding. CT interpreted by me (1pt min.). @ -None done U/S interpreted by me (1pt. min.). @ -None done What testing was considered but not performed or refused? (CT, X-rays, U/S, labs)? Why? @ -None What meds were considered but not given or refused? Why? @ -None Did you discuss the management of the patient with other professionals (professionals i.e. , PA, E[employer]ER, lab, RT, psych nurse, adoption social worker, trapeze artist, teacher, bank secrecy act officer, porter sample case)? Give summary @ -No Was smoking cessation discussed for >3mins.? @ -No Was critical care preformed (if so, how long)? @ -No Were there social determinants of health that impacted care today? How? (Homelessness, low income, unemployed, alcoholism, drug addiction, transportation, low edu. Level, literacy, decrease access to med. care, nursing home, rehab)? @ -No Was there de-escalation of care discussed even if they declined (Discuss DNR or withdrawal of care, Hospice)? DNR status @ -No What co-morbidities impacted this encounter? (DM, HTN, Smoking, COPD, CAD, Cancer, CVA, ARF, Chemo, Hep., AIDS, mental health diagnosis, sleep apnea, morbid obesity)? @ -None Was patient admitted / discharged? Hospital course, mention meds given and route, prescriptions, significant lab abnormalities, going to OR and other pertinent info. @ -Discharge 33-year-old female presents to the ED with chief complaint of neck pain. Leg films reveal no evidence of fracture or other acute finding. Exam revealed no evidence of Kernig or Brudzinski sign. Vital signs stable afebrile. Symptoms likely muscular skeletal nature. Discharged home in stable condition. Discussed return precautions with patient who verbalizes agreement. Undiagnosed new problem with uncertain prognosis? @ -No Drug Therapy requiring intensive monitoring for toxicity (Heparin, Nitro, Insulin, Cardizem)? @ -No Were any procedures done? @ -No Diagnosis/symptom? @ -Neck pain Acute, or Chronic, or Acute on Chronic? @ -Acute Uncomplicated (without systemic symptoms) or Complicated (systemic symptoms)? @ -Uncomplicated Side effects of treatment? @ -No Exacerbation, Progression, or Severe Exacerbation? @ -No Poses a threat to life or bodily function? How? (Chest pain, [place], [place], pneumonia, PE, COPD, DKA, ARF, appy, cholecystitis, CVA, Diverticulitis, Homicidal, Suicidal, threat to staff... and all critical care pts) @ -No Disposition Clinical Impression: Neck pain Disposition: HOME SELF-CARE Condition: Good Instructions (If sedation given, give patient instructions): Cervical Strain (ED) Additional Instructions: Please return to the Emergency Department if symptoms worsen or any other concerns. Please follow up with your PCP. Is patient prescribed a controlled substance at d/c from ED?: No Referrals: Quincy Medina DO [Primary Care Provider] - 1-2 days Time of Disposition: 22:05
[2023-06-19] MEDS ORDERED: CYCLOBENZAPRINE 10MG STARTER 3 TAB BTL PO STA (22:16)
[2023-06-19 22:26] VITALS: BP 168/90; PULSE 95; RESP 19
== END 2023-06-19 22:23 | disposition home or self-care (01) ==
LOC: EC 17:28
DX: M54.2 Cervicalgia (principal); I10 Essential (primary) hypertension; F12.90 Cannabis use, unspecified, uncomplicated; Z86.59 Personal history of other mental and behavioral disorders; Z79.899 Other long term (current) drug therapy; Z88.8 Allergy status to other drugs, medicaments and biological substances; Z88.2 Allergy status to sulfonamides
CPT/HCPCS: 99283; 96372; 72050; J1885

== ENCOUNTER → 2024-02-09 | Outpatient (CLI) | payer MEDICAID, OTHER ==
--- NOTE | 2024-02-09 22:19 | MR ---
EXAMINATION TYPE: MR brain wo con DATE OF EXAM: 02/09/2024 8:22 PM COMPARISON: MRA head 02/09/2024. CLINICAL INDICATION:Female, 33 years old with history of G43.109 MIGRAIN W AURA AND WO STATUS (BRAIN) ; PHH, TECHNIQUE: Multi planar, multi sequence imaging was performed through the brain. No gadolinium was gi haley. FINDINGS: The weinstein-white junctions, ventricular system, and cisterns appear unremarkable. Right frontoparietal region 9 mm T2/FLAIR sagittal hyperintense lesion within the ma radiata (series 601, image 20). Midline structures show no abnormality. Diffusion-weighted imaging shows no evidence of restricted di ffusion. The susceptibility weighted images do not reveal any evidence for micro-hemorrhage. The bone marrow signal is within normal limits. The paranasal sinuses and globes are unremarkable. IMPRESSION: 1. No evidence of acute/subacute infarct. 2. Right ma radiata 9 mm white matter lesion. Etiologies include migraine versus demyelination ve rsus less likely ischemic disease. Consider follow-up MRI with contrast to assess for enhancement.\
--- NOTE | 2024-02-09 22:21 | MR ---
EXAMINATION TYPE: MR angio head wo con DATE OF EXAM: 02/09/2024 COMPARISON: MR brain of the same date HISTORY: migraine. TECHNIQUE: Time of flight images focusing on the [place] of [place] were performed without contrast. FINDINGS: There is no evidence for focal stenosis, large vessel occlusion, or discrete aneurysm. Th e vertebral arteries are codominant. IMPRESSION: No evidence for focal stenosis, occlusion or aneurysm. [facility] PM
== END | disposition home or self-care (01) ==
LOC: RADMRIMAIN 19:07
PROVIDERS: ATTEND Psychiatry & Neurology Neurology
DX: G43.109 Migraine with aura, not intractable, without status migrainosus (principal)
CPT/HCPCS: 70544; 70551

== ENCOUNTER → 2024-04-22 | Outpatient (CLI) | payer MEDICAID, OTHER ==
--- NOTE | 2024-04-22 20:49 | MR ---
INDICATION: Patient age:Female; 34 years old; Reason for study: Migraines, headaches, dizziness, right-sided hearing loss, memory issues, family hi story of aneurysm; PHH. COMPARISON: MRI brain 02/09/2024, MRA head 02/09/2024. TECHNIQUE: Multi planar, multi sequence imaging was performed through the brain. The patient was then given 6.5 cc of Gadavist intravenously and multi planar, T1 fat-saturation images were obtained. FINDINGS: The weinstein-white junctions, ventricular system, basal cisterns appear unremarkable. Age-appropriate cer ebral volume. Diffusion-weighted imaging shows no evidence of restricted diffusion to suggest acute/s ubacute infarct. Intracranial arterial flow voids are maintained. Midline structures show no abnormal ity. No significant change in subtle T2/FLAIR hyperintense 8 mm patchy lesion within the right ma radiata. No new suspicious FLAIR signal abnormality's. The susceptibility weighted images do not rev eal any evidence for micro-hemorrhage. After administration of gadolinium, no abnormal enhancement is seen. The bone marrow signal is within normal limits. The paranasal sinuses and globes are unremarkable. IMPRESSION: 1. No evidence of acute/subacute infarct or abnormal enhancement. 2. No significant change in subcentimeter patchy white matter lesion within the right ma radiata. No new suspicious lesions. Etiologies include migraine versus small vessel ischemic disease versus d emyelination versus other. No enhancement to suggest active demyelination. [facility], , 04/22/2024 8:47 PM
== END | disposition home or self-care (01) ==
LOC: RADMRIMAIN 17:21
PROVIDERS: ATTEND Psychiatry & Neurology Neurology
DX: G43.109 Migraine with aura, not intractable, without status migrainosus (principal); R41.3 Other amnesia; H91.91 Unspecified hearing loss, right ear; Z82.49 Family history of ischemic heart disease and other diseases of the circulatory system
CPT/HCPCS: 70553; A9585

== ENCOUNTER → 2024-09-24 | Outpatient (CLI) | payer MEDICAID, OTHER ==
--- NOTE | 2024-09-24 12:17 | XR ---
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 Talar dome is intact. Tiny plantar heel spur. Subta lar joint alignment appears normal delineation of the Achilles tendon. IMPRESSION: No acute osseous abnormality seen on limited 2 views. [facility], , 09/24/2024 12:14 PM
== END | disposition home or self-care (01) ==
LOC: RADXRMAIN 08:59
PROVIDERS: ATTEND Internal Medicine
DX: M77.31 Calcaneal spur, right foot (principal); V19 Pedal cycle rider injured in other and unspecified transport accidents

== ENCOUNTER → 2024-09-28 | Outpatient (CLI) | payer MEDICAID, OTHER ==
[2024-09-28 13:34] LABS: Basophils # (A) 0.04 X 10*3/uL (0.00-0.10); Basophils % (A) 0.6 %; Eosinophils % (A) 1.4 %; HCT 45.8 % (37.2-46.3); HGB 15.6 g/dL (12.0-15.0); Lymphocytes # (A) 2.21 X 10*3/uL (0.90-5.00); Lymphocytes % (A) 31.7 %; MCH 30.5 pg (27.0-32.0); MCHC 34.1 g/dL (32.0-37.0); MCV 89.6 FL (80.0-97.0); Mean Platelet Volume 9.8 FL (9.5-12.2); Monocytes # (A) 0.45 X 10*3/uL (0.20-1.00); Monocytes % (A) 6.5 %; NRBC Per 100 WBC 0 X 10*3/uL (0.00-0.01); Neutrophils # (A) 4.16 X 10*3/uL (1.80-7.70); Neutrophils % (A) 59.7 %; Platelet Count 272 X 10*3/uL (140-440); RBC 5.11 X 10*6/uL (4.10-5.20); RDW 12.7 % (11.5-14.5); WBC 6.97 X 10*3/uL (4.50-10.00)
[2024-09-28 14:10] LABS: BUN/Creat Ratio 10.89 Ratio (12.00-20.00); Blood Urea Nitrogen 9.8 mg/dL (9.0-27.0); Chloride 104 mmol/L (96-109); Glucose 82 mg/dL (70-110); LDL Cholesterol,Calculated 129.4 mg/dL (0.0-131.0); Potassium 4.5 mmol/L (3.5-5.5); Sodium 139 mmol/L (135-145); VLDL Calculation 14.38 mg/dL (5.00-40.00)
[2024-09-28 14:11] LABS: ALT 12 U/L (8-44); AST 17 U/L (13-35); Albumin 4.4 g/dL (3.8-4.9); Albumin/Globulin Ratio 1.83 Ratio (1.60-3.17); Alkaline Phosphatase 95 U/L (41-126); Calcium 9.7 mg/dL (8.7-10.3); Carbon Dioxide 20.6 mmol/L (21.6-31.8); Globulin 2.4 g/dL (1.6-3.3); Total Bilirubin 0.6 mg/dL (0.3-1.2); Total Protein 6.8 g/dL (6.2-8.2)
[2024-09-28 15:31] LABS: Thyroid Peroxidase Antibodies 10.8 U/mL (0.0-33.0)
== END | disposition home or self-care (01) ==
LOC: LABWHC1 09:14
PROVIDERS: ATTEND Family Medicine
DX: Z13.228 Encounter for screening for other metabolic disorders (principal); I10 Essential (primary) hypertension; R53.83 Other fatigue
CPT/HCPCS: 36415; 80053; 80061; 82306; 83036; 84432; 84443; 85025; 86376